=== PATIENT | male | born 1965 | race Hispanic/Latino ===

== ENCOUNTER 2024-07-30 23:53 | Emergency (ER) | payer SELFPAY ==
[~2024-07-30] VITALS: Ht 157.5 cm; Wt 63.0 kg
[2024-07-31] VITALS (11 sets, daily range): BP systolic 77–137; BP diastolic 47–100
[2024-07-31] MEDS ORDERED: SODIUM CHLORIDE 0.9% 1,000 ML IV ONE (00:05)
[2024-07-31] MEDS ORDERED: THIAMINE HCL 100 MG/ML 2ML VIAL IV ONE (00:05)
[2024-07-31 00:15] LABS: BASO% 0.3 % (0-3); EOS% 0.3 % (0-8); HEMATOCRIT 43.5 % (39.0-50.0); HEMOGLOBIN 15.2 g/dl (14.0-18.0); IMMATURE GRANULOCYTES 0.4 % (0.0-5.0); LYMPH% 32.7 % (15-41); MEAN CELL VOLUME 86.3 fL CALC (80.0-100.0); MEAN CORPUSCULAR HGB 30.2 pG CALC (26.0-32.0); MEAN CORPUSCULAR HGB CONC 34.9 g/dL CAL (32.0-36.0); MONO% 6.9 % (2-13); NEUT# 7.8 thou/uL (1.82-7.42); NEUT% 59.4 % (42-76); RED BLOOD COUNT 5.04 mill/uL (4.70-6.10); RED CELL DISTRI WIDTH 12.6 % (11.5-15.5)
[2024-07-31 00:30] LABS: ALBUMIN 4.4 g/dL (3.2-5.0); ALKALINE PHOSPHATASE 59 u/l (38-126); ANION GAP 14 (6-22 (CALC)); BILIRUBIN, TOTAL 0.6 mg/dL (0.2-1.3); BUN 10 mg/dL (9-20); BUN/CREATININE RATIO 8 (12-20 (CALC)); CARBON DIOXIDE 23 mmol/l (22-30); CHLORIDE 112 mmol/l (95-108); CREATININE 1.2 mg/dL (0.7-1.3); ESTIMATED GFR 70 ML/MIN (>=90 (CALC)); ETHYL ALCOHOL 253 mg/dl (0-30); MAGNESIUM 1.5 mg/dL (1.6-2.3); SGOT/AST 44 u/l (17-59); SODIUM 145 mmol/l (137-146); TOTAL PROTEIN 7.5 g/dL (6.3-8.2)
[2024-07-31 00:36] LABS: ACT PARTIAL THROMBO TIME 23.7 SECONDS (20.0-32.5); INTERNATIONAL NORMALIZED RATIO 1.1 RATIO (0.7-1.3)
[2024-07-31 00:43] LABS: PROTHROMBIN TIME 10.8 SECONDS (9.0-12.5)
[2024-07-31] MEDS ORDERED: Pantoprazole Sodium 40 MG VIAL (Protonix) IV ONE (00:55)
[2024-07-31] MEDS ORDERED: KETOROLAC TROMETHAMINE 30 MG/ML SDV IV ONE (00:55)
[2024-07-31] MEDS ORDERED: PROMETHAZINE HCL 25 MG/ML AMP IV ONE (00:55)
[2024-07-31] MEDS ORDERED: POTASSIUM CHLORIDE 20 MEQ/TAB PO ONE (05:40)
[2024-07-31] MEDS ORDERED: LACTATED RINGER'S 1,000 ML IV ONE (05:40)
[2024-07-31 06:06] LABS: URINE BILIRUBIN - DIPSTICK Negative (NEGATIVE); URINE BLOOD DIPSTICK Moderate (NEGATIVE); URINE GLUCOSE - DIPSTICK Negative (NEGATIVE); URINE KETONE Negative (NEGATIVE); URINE LEUK ESTERASE Negative (NEGATIVE); URINE NITRITE - DIPSTICK Negative (Negative); URINE PH 5.5 (4.5-8.0); URINE PROTEIN - DIPSTICK 30 mg/dL (NEG-TRACE); URINE SPECIFIC GRAVITY >=1.030; URINE UROBILINOGEN - DIPSTICK 0.2 E.U./dL (0.2)
[2024-07-31 06:07] LABS: URINE COLOR Yellow
[2024-07-31 06:14] LABS: URINE RBC 0-2 RBC/hpf (0-5); URINE SQUAMOUS EPITHELIAL CELL FEW EPI/hpf (0-FEW)
[2024-07-31] MEDS ORDERED: POTASSIUM CHLO20 ME1 PO (06:31)
== END 2024-07-31 08:39 | disposition home or self-care (01) | DRG 897 ==
LOC: ED 23:53
PROVIDERS: Family Medicine
DX: F10.129 Alcohol abuse with intoxication, unspecified (principal); Y90.8 Blood alcohol level of 240 mg/100 ml or more; E87.6 Hypokalemia; F17.210 Nicotine dependence, cigarettes, uncomplicated
CPT/HCPCS: J2470